=== PATIENT | male | born 1975 | race Caucasian/White ===

== ENCOUNTER 2017-11-28 12:39 | Emergency (ER) | payer MEDICAID ==
[~2017-11-28] VITALS: Ht 177.8 cm; Wt 88.7 kg
[2017-11-28 13:50] LABS: CLARITY,URINE CLEAR (Clear); COLOR,URINE STRAW (Yellow); GLUCOSE, URINE NEGATIVE (Neg); KETONES,URINE NEGATIVE (Neg); LEUKOCYTE ESTERASE ,URINE NEGATIVE (Neg); NITRITES, URINE NEGATIVE (Neg); OCCULT BLOOD,URINE NEGATIVE (Neg); PROTEIN,URINE NEGATIVE (Neg); UROBILINOGEN,URINE 0.2 E.U/dL (0.2-1.0)
[2017-11-28 13:51] LABS: UA COLLECTION TYPE VOIDED
[2017-11-28 14:05] VITALS: BP 143/92
[2017-11-28] MEDS ORDERED: PRED10TA23 PO (15:09)
[2017-11-28] MEDS ORDERED: DIPH25CA83 PO (15:09)
[2017-11-28] MEDS ORDERED: methylPREDNISolone sod succ 125mg/2ml vial IM ONE (15:10)
== END 2017-11-28 15:46 | disposition home or self-care (01) ==
LOC: ER 12:40
DX: L29.8 Other pruritus (principal); T78.40XA Allergy, unspecified, initial encounter; X58.XXXA Exposure to other specified factors, initial encounter
CPT/HCPCS: 81003; 96372; 99283; J2930

== ENCOUNTER 2018-05-18 17:08 | Emergency (ER) | payer MEDICAID, OTHER ==
[~2018-05-18] VITALS: Ht 604 cm; Wt 100.0 kg
[~2018-05-18 17:08] MED LIST: DIPH25CA83 PO
[2018-05-18 17:26] VITALS: BP 131/76
[2018-05-18] MEDS ORDERED: PENI250T2 PO (18:32)
== END 2018-05-18 18:46 | disposition home or self-care (01) ==
LOC: ER 17:08
DX: K04.7 Periapical abscess without sinus (principal); Z79.899 Other long term (current) drug therapy
CPT/HCPCS: 99283; J7030

== ENCOUNTER 2018-06-11 18:27 | Emergency (ER) | payer SELFPAY ==
[~2018-06-11] VITALS: Ht 177.8 cm; Wt 100.0 kg
[2018-06-11 19:04] LABS: BASOPHILS % (AUTO) 0.3 % (0-1); EOSINOPHILS # (AUTO) 0.3 X10'3 (0-0.9); EOSINOPHILS % (AUTO) 3.1 % (0-6); HEMATOCRIT 46.2 % (42.0-52.0); HEMOGLOBIN 15.2 g/dl (14.0-17.9); LYMPHOCYTES # (AUTO) 2.3 X10'3 (1.1-4.8); LYMPHOCYTES % (AUTO) 23.6 % (21-51); MEAN CORPUSCULAR HEMOGLOBIN 30.9 PG (27.0-31.0); MEAN CORPUSCULAR HGB CONC 32.9 % (33.0-36.5); MEAN CORPUSCULAR VOLUME 93.9 FL (78-98); MEAN PLATELET VOLUME 6.8 FL (7.4-10.4); MONOCYTES # (AUTO) 0.8 X10'3 (0-0.9); MONOCYTES % (AUTO) 8.5 % (2-12); NEUTROPHILS # (AUTO) 6.3 X10'3 (1.8-7.7); NEUTROPHILS % (AUTO) 64.5 % (42-75); PLATELET COUNT 286 X10'3 (140-440); RED BLOOD COUNT 4.92 X10'6 (4.70-6.10); RED CELL DISTRIBUTION WIDTH 14.6 % (11.5-14.5); WHITE BLOOD COUNT 9.8 X10'3 (4.5-11.0)
[2018-06-11 19:12] LABS: ALANINE AMINOTRANSFERASE 40 U/L (12-78); ALBUMIN 4.2 G/DL (3.4-5.0); ALBUMIN/GLOBULIN RATIO 1.2 (1.1-1.5); ALKALINE PHOSPHATASE 72 IU/L (46-116); ANION GAP 6 (8-16); ASPARTATE AMINO TRANSFERASE 23 U/L (10-37); BILIRUBIN,TOTAL 0.5 MG/DL (0.1-1.0); BLOOD UREA NITROGEN 12 MG/DL (7-18); BUN/CREATININE RATIO 12.1 (5.4-32.0); CALCIUM 9.1 MG/DL (8.5-10.1); CHLORIDE 104 MMOL/L (99-107); CREATININE 0.99 MG/DL (0.60-1.10); GLUCOSE 101 MG/DL (70-104); POTASSIUM 3.8 MMOL/L (3.5-5.1); SODIUM 139 MMOL/L (135-145); TOTAL CARBON DIOXIDE 29.3 MMOL/L (24-32); TOTAL PROTEIN 7.8 G/DL (6.4-8.2); eGFR 83 ML/MIN
[2018-06-11 19:14] LABS: PROTHROMBIN TIME 10.3 SECONDS (9.0-12.0)
[2018-06-11 19:53] LABS: CLARITY,URINE CLEAR (Clear); COLOR,URINE YELLOW (Yellow); GLUCOSE, URINE NEGATIVE (Neg); KETONES,URINE NEGATIVE (Neg); LEUKOCYTE ESTERASE ,URINE NEGATIVE (Neg); NITRITES, URINE NEGATIVE (Neg); OCCULT BLOOD,URINE TRACE-INTACT (Neg); PROTEIN,URINE NEGATIVE (Neg); UROBILINOGEN,URINE 0.2 E.U/dL (0.2-1.0)
[2018-06-11 19:58] LABS: UA COLLECTION TYPE CLN CATCH MIDSTREAM
[2018-06-11 19:59] LABS: BACTERIA,URINE NONE SEEN /HPF (Neg); MUCUS STRANDS NONE SEEN /LPF (Neg); RBC,URINE 0-2 /HPF (0-2); SQUAMOUS EPITHELIAL CELL,UR NONE SEEN /LPF (FEW); WBC,URINE NONE SEEN /HPF (0-4)
[2018-06-11] MEDS ORDERED: SUCR1TAB34 PO (20:10)
[2018-06-11] MEDS ORDERED: ketorolac trometh inj. 60 MG/2 ML VIAL IM ONE (20:15)
[2018-06-11 21:06] VITALS: BP 123/78
== END 2018-06-11 21:08 | disposition home or self-care (01) ==
LOC: ER 18:28
DX: R10.13 Epigastric pain (principal); R11.0 Nausea; R50.9 Fever, unspecified
CPT/HCPCS: 36415; 80053; 81001; 85025; 85610; 93005; 96372; 99285; J1885

== ENCOUNTER 2021-03-25 17:36 | Emergency (ER) | payer MEDICAID ==
[~2021-03-25] VITALS: Ht 177.8 cm; Wt 95.5 kg
[~2021-03-25 17:36] MED LIST changes: +SUCR1TAB34 PO
[2021-03-25 19:07] LABS: BASOPHILS # (AUTO) 0.1 X10'3 (0-0.2); BASOPHILS % (AUTO) 0.7 % (0-1); EOSINOPHILS # (AUTO) 0.1 X10'3 (0-0.9); HEMATOCRIT 45.9 % (42.0-52.0); HEMOGLOBIN 15.8 g/dl (14.0-17.9); LYMPHOCYTES # (AUTO) 3.5 X10'3 (1.1-4.8); MEAN CORPUSCULAR HGB CONC 34.5 g/dL (33.0-36.5); MEAN CORPUSCULAR VOLUME 92.8 FL (78-98); MEAN PLATELET VOLUME 6.9 FL (7.4-10.4); MONOCYTES # (AUTO) 0.6 X10'3 (0-0.9); MONOCYTES % (AUTO) 5.6 % (2-12); NEUTROPHILS % (AUTO) 61.7 % (42-75); PLATELET COUNT 298 X10'3 (140-440); RED BLOOD COUNT 4.94 X10'6 (4.70-6.10); RED CELL DISTRIBUTION WIDTH 13.3 % (11.5-14.5); WHITE BLOOD COUNT 11.3 X10'3 (4.5-11.0)
[2021-03-25] MEDS ORDERED: ondansetron 4mg rapidly disintigrating tab PO ONE ×2 (19:15→20:45)
[2021-03-25] MEDS ORDERED: HYDROcodone/acetaminophen 5mg/325mg tablet PO ONE ×2 (19:15→20:45)
[2021-03-25] MEDS ORDERED: ketorolac tromethamine 15mg/ml inj. IV ONE (19:15)
[2021-03-25] MEDS ORDERED: normal saline 1000ml 1,000 ML IV ONE (19:15)
[2021-03-25 19:19] LABS: ALANINE AMINOTRANSFERASE 47 U/L (12-78); ALBUMIN 4.6 G/DL (3.4-5.0); ALBUMIN/GLOBULIN RATIO 1.4 (1.1-1.5); ALKALINE PHOSPHATASE 68 IU/L (46-116); ANION GAP 9 (8-16); ASPARTATE AMINO TRANSFERASE 16 U/L (10-37); BILIRUBIN,TOTAL 0.5 MG/DL (0.1-1.0); BLOOD UREA NITROGEN 26 MG/DL (7-18); BUN/CREATININE RATIO 21.3 (5.4-32.0); CHLORIDE 101 MMOL/L (99-107); CREATININE 1.22 MG/DL (0.60-1.10); GLUCOSE 147 MG/DL (70-104); LIPASE 169 U/L (73-393); POTASSIUM 4.2 MMOL/L (3.5-5.1); SODIUM 136 MMOL/L (135-145); TOTAL CARBON DIOXIDE 26.2 MMOL/L (24-32); TOTAL PROTEIN 7.9 G/DL (6.4-8.2); eGFR 64 ML/MIN
[2021-03-25 19:26] LABS: CLARITY,URINE SLIGHTLY CLOUDY (Clear); COLOR,URINE YELLOW (Yellow); GLUCOSE, URINE NEGATIVE (Neg); KETONES,URINE NEGATIVE (Neg); LEUKOCYTE ESTERASE ,URINE NEGATIVE (Neg); NITRITES, URINE NEGATIVE (Neg); OCCULT BLOOD,URINE NEGATIVE (Neg); PROTEIN,URINE NEGATIVE (Neg); UROBILINOGEN,URINE 0.2 E.U/dL (0.2-1.0)
[2021-03-25 19:30] LABS: UA COLLECTION TYPE CLN CATCH MIDSTREAM
--- NOTE | 2021-03-25 19:30 | NUR ---
Patient ambulatory to CT
--- NOTE | 2021-03-25 19:39 | NUR ---
Patient states pain has sarted to subdue at this time and feels like he is able to urinate more.
[2021-03-25 20:03] LABS: BACTERIA,URINE NONE SEEN /HPF (Neg); RBC,URINE NONE SEEN /HPF (0-2); SQUAMOUS EPITHELIAL CELL,UR NONE SEEN /LPF (FEW); WBC,URINE 0-4 /HPF (0-4)
[2021-03-25 20:04] LABS: AMORPHOUS URATES 2+
[2021-03-25] MEDS ORDERED: HYDR-3965 PO (20:44)
[2021-03-25] MEDS ORDERED: FLO0.4C PO (20:44)
[2021-03-25] MEDS ORDERED: ONDA4TAB6 PO (20:44)
[2021-03-25 20:59] VITALS: BP 136/82
== END 2021-03-25 21:01 | disposition home or self-care (01) ==
LOC: ER 17:37
DX: N20.1 Calculus of ureter (principal); R10.84 Generalized abdominal pain; R11.0 Nausea; Z87.442 Personal history of urinary calculi; Z79.899 Other long term (current) drug therapy
CPT/HCPCS: 36415; 74176; 80053; 81001; 83690; 85025; 96361; 96374; 99284; J1885; J7030

== ENCOUNTER 2021-11-03 04:19 | Inpatient (IN) | payer MEDICAID ==
[~2021-11-03] VITALS: Ht 180.3 cm; Wt 99.0 kg
[~2021-11-03 04:19] MED LIST changes: +ONDA4TAB6 PO
--- NOTE | 2021-11-03 04:41 | NUR ---
patient aware urine sample is needed urinal given to patient awaiting sample
[2021-11-03 04:55] LABS: BASOPHILS % (AUTO) 0.2 % (0-1); EOSINOPHILS # (AUTO) 0.1 X10'3 (0-0.9); EOSINOPHILS % (AUTO) 0.2 % (0-6); HEMATOCRIT 50.6 % (42.0-52.0); HEMOGLOBIN 17.2 g/dl (14.0-17.9); LYMPHOCYTES # (AUTO) 0.9 X10'3 (1.1-4.8); MEAN CORPUSCULAR HEMOGLOBIN 31.4 PG (27.0-31.0); MEAN CORPUSCULAR HGB CONC 33.9 g/dL (33.0-36.5); MEAN CORPUSCULAR VOLUME 92.6 FL (78-98); MONOCYTES # (AUTO) 0.8 X10'3 (0-0.9); MONOCYTES % (AUTO) 3.4 % (2-12); NEUTROPHILS # (AUTO) 21.1 X10'3 (1.8-7.7); NEUTROPHILS % (AUTO) 92.2 % (42-75); PLATELET COUNT 301 X10'3 (140-440); RED BLOOD COUNT 5.47 X10'6 (4.70-6.10); RED CELL DISTRIBUTION WIDTH 14.1 % (11.5-14.5); WHITE BLOOD COUNT 22.9 X10'3 (4.5-11.0)
[2021-11-03 04:59] LABS: ALANINE AMINOTRANSFERASE 57 U/L (12-78); ALBUMIN 5.1 G/DL (3.4-5.0); ALBUMIN/GLOBULIN RATIO 1.4 (1.1-1.5); ALKALINE PHOSPHATASE 65 IU/L (46-116); ANION GAP 14 (8-16); ASPARTATE AMINO TRANSFERASE 35 U/L (10-37); BILIRUBIN,TOTAL 1.4 MG/DL (0.1-1.0); BLOOD UREA NITROGEN 26 MG/DL (7-18); BUN/CREATININE RATIO 22.4 (5.4-32.0); CALCIUM 9.7 MG/DL (8.5-10.1); CHLORIDE 103 MMOL/L (99-107); CREATININE 1.16 MG/DL (0.60-1.10); GLUCOSE 130 MG/DL (70-104); LIPASE 144 U/L (73-393); POTASSIUM 4.5 MMOL/L (3.5-5.1); SODIUM 143 MMOL/L (135-145); TOTAL CARBON DIOXIDE 26.1 MMOL/L (24-32); TOTAL PROTEIN 8.8 G/DL (6.4-8.2); eGFR 67 ML/MIN
[2021-11-03 05:01] LABS: CLARITY,URINE CLEAR (Clear); COLOR,URINE YELLOW (Yellow); GLUCOSE, URINE NEGATIVE (Neg); KETONES,URINE NEGATIVE (Neg); LEUKOCYTE ESTERASE ,URINE NEGATIVE (Neg); NITRITES, URINE NEGATIVE (Neg); OCCULT BLOOD,URINE NEGATIVE (Neg); PROTEIN,URINE NEGATIVE (Neg); UROBILINOGEN,URINE 0.2 E.U/dL (0.2-1.0)
[2021-11-03 05:02] LABS: UA COLLECTION TYPE CLN CATCH MIDSTREAM
[2021-11-03] MEDS ORDERED: normal saline 1000ML IV soln IV ONE (05:05)
[2021-11-03] MEDS ORDERED: morphine 2 MG/ML inj. syringe IV PRN (05:15)
[2021-11-03] MEDS ORDERED: metoclopramide 5 mg/ml inj IV ONE (05:15)
[2021-11-03 05:46] LABS: MAGNESIUM 1.9 MG/DL (1.5-2.4)
[2021-11-03] MEDS ORDERED: piperacillin/tazo 3.375gm/50ml 50 ML IV ONE ×2 (06:20→12:00)
--- NOTE | 2021-11-03 11:59 | NUR ---
SPOKE TO DR MAIN AND ASKED IF HE KNOWS ANYTHING ABOUT PT POC ,PT WAITING FOR SURGEON ,NO ADMITTING ORDERS FOR THE PT ,PT C/O HEADACHE , PER MD HE WILL SEE WHAT IS GOING ON PT SUPPOSE TO BE ADMITTED LONG TIME AGO BUT PER PEG EDEN STATED THAT DR MUÑOZ WILL COME EVALUATE THE PT AND DECIDE WHETHER PT NEEDS TO BE ADMITTED.
--- NOTE | 2021-11-03 12:04 | NUR ---
SPOKE TO PHARMACIST/FORTUNATO AND INFORMED THAT PT HAS ZYOSIN ORDER AND HE RECIVED IT 5 HR AGO PER FREKeira ITS Q6 HR IS IT OKAY TO ADMIN TO THE PT? PER PHARMACIST ITS OKAY EVEN ITS Q5 HR.
[2021-11-03] MEDS ORDERED: HYDROmorphone inj. 0.5 MG/0.5 ML DISP.SYRIN IV PRN ×2 (12:15→12:49)
[2021-11-03] MEDS ORDERED: magnesium 2GM in 50ml NS 50 ML IV PRN (12:15)
[2021-11-03] MEDS ORDERED: potassium Cl 20 mEq SR tablet PO PRN ×2 (12:15)
[2021-11-03] MEDS ORDERED: HYDROmorphone/PF 0.2 MG/ML SYRINGE IV PRN (12:15)
[2021-11-03] MEDS ORDERED: potassium CL 10mEq/100ml bag 100 ML IV PRN (12:15)
[2021-11-03] MEDS ORDERED: ondansetron/PF 4mg/2ml inj IV PRN (12:15)
[2021-11-03] MEDS ORDERED: acetaminophen 325mg tablet PO PRN (12:15)
[2021-11-03] MEDS ORDERED: magnesium 4gm in 100ml NS 100 ML IV PRN (12:15)
[2021-11-03 12:35] LABS: BASOPHILS % (AUTO) 0.3 % (0-1); EOSINOPHILS # (AUTO) 0.1 X10'3 (0-0.9); EOSINOPHILS % (AUTO) 0.3 % (0-6); HEMATOCRIT 44.9 % (42.0-52.0); LYMPHOCYTES # (AUTO) 0.9 X10'3 (1.1-4.8); LYMPHOCYTES % (AUTO) 5.4 % (21-51); MEAN CORPUSCULAR HEMOGLOBIN 31.3 PG (27.0-31.0); MEAN CORPUSCULAR HGB CONC 33.3 g/dL (33.0-36.5); MEAN PLATELET VOLUME 6.7 FL (7.4-10.4); MONOCYTES # (AUTO) 0.6 X10'3 (0-0.9); MONOCYTES % (AUTO) 3.7 % (2-12); NEUTROPHILS # (AUTO) 15.3 X10'3 (1.8-7.7); NEUTROPHILS % (AUTO) 90.3 % (42-75); PLATELET COUNT 270 X10'3 (140-440); RED BLOOD COUNT 4.78 X10'6 (4.70-6.10); RED CELL DISTRIBUTION WIDTH 14.3 % (11.5-14.5)
[2021-11-03] MEDS ORDERED: HYDR-3965 PO (12:36)
[2021-11-03] MEDS ORDERED: IBUP-24 PO (12:36)
[2021-11-03] MEDS ORDERED: SILD50TA PO (12:36)
[2021-11-03 12:44] LABS: ALANINE AMINOTRANSFERASE 45 U/L (12-78); ALBUMIN 4.1 G/DL (3.4-5.0); ALBUMIN/GLOBULIN RATIO 1.3 (1.1-1.5); ALKALINE PHOSPHATASE 52 IU/L (46-116); ANION GAP 8 (8-16); ASPARTATE AMINO TRANSFERASE 21 U/L (10-37); BILIRUBIN,TOTAL 1.5 MG/DL (0.1-1.0); BLOOD UREA NITROGEN 19 MG/DL (7-18); BUN/CREATININE RATIO 18.6 (5.4-32.0); CALCIUM 8.1 MG/DL (8.5-10.1); CHLORIDE 104 MMOL/L (99-107); CREATININE 1.02 MG/DL (0.60-1.10); GLUCOSE 125 MG/DL (70-104); POTASSIUM 4.3 MMOL/L (3.5-5.1); SODIUM 139 MMOL/L (135-145); TOTAL CARBON DIOXIDE 26.6 MMOL/L (24-32); TOTAL PROTEIN 7.3 G/DL (6.4-8.2); eGFR 78 ML/MIN
[2021-11-03] MEDS: normal saline 1000ml 1,000 ML IV SCH ×2 (13:07→21:00)
[2021-11-03] MEDS ORDERED: sincalide inj 2 MCG in normal saline 50ml IV soln 50 ML IV ONE (14:15)
[2021-11-03] MEDS: piperacillin/tazo 4.5gm/100ml 100 ML IV SCH (17:19)
[2021-11-03 19:45] VITALS: BP 119/69
--- NOTE | 2021-11-03 19:58 | NUR ---
PAGER ID: [phone] MESSAGE: Pt 350A Michael Phillips pt says he was told he would be able to eat and be NPO at 0400 but the only diet order in is NPO. He is hungry. Maddie [id number]
[2021-11-03] MEDS: K and/or MAG REPLACEMENT MC SCH (20:00)
--- NOTE | 2021-11-03 20:08 | NUR ---
PAGER ID: [phone] MESSAGE: [id number] Michael Phillips scan in morning but is hungry now can we get a diet order and make him NPO after midnight. Maddie [id number]
[2021-11-03 23:26] VITALS: BP 114/59
[2021-11-04] MEDS: piperacillin/tazo 4.5gm/100ml 100 ML IV SCH ×2 (00:42→10:36)
[2021-11-04] MEDS: normal saline 1000ml 1,000 ML IV SCH (04:37)
[2021-11-04 06:14] LABS: BASOPHILS % (AUTO) 0.4 % (0-1); EOSINOPHILS # (AUTO) 0.2 X10'3 (0-0.9); EOSINOPHILS % (AUTO) 1.9 % (0-6); HEMATOCRIT 39.2 % (42.0-52.0); HEMOGLOBIN 13.4 g/dl (14.0-17.9); LYMPHOCYTES # (AUTO) 2.1 X10'3 (1.1-4.8); LYMPHOCYTES % (AUTO) 23.5 % (21-51); MEAN CORPUSCULAR HEMOGLOBIN 31.9 PG (27.0-31.0); MEAN CORPUSCULAR HGB CONC 34.3 g/dL (33.0-36.5); MEAN CORPUSCULAR VOLUME 93.1 FL (78-98); MONOCYTES # (AUTO) 0.7 X10'3 (0-0.9); MONOCYTES % (AUTO) 7.8 % (2-12); NEUTROPHILS % (AUTO) 66.4 % (42-75); PLATELET COUNT 238 X10'3 (140-440); RED BLOOD COUNT 4.21 X10'6 (4.70-6.10); RED CELL DISTRIBUTION WIDTH 14.1 % (11.5-14.5)
--- NOTE | 2021-11-04 06:18 | NUR ---
Problems reprioritized. Patient report given, questions answered & plan of care reviewed with [facility] Zhu. She is aware pt is NPO since midnight and not able to have opiates due to HIDA scan this morning.
[2021-11-04 06:28] LABS: ALANINE AMINOTRANSFERASE 38 U/L (12-78); ALBUMIN 3.3 G/DL (3.4-5.0); ALBUMIN/GLOBULIN RATIO 1.1 (1.1-1.5); ALKALINE PHOSPHATASE 43 IU/L (46-116); ANION GAP 7 (8-16); ASPARTATE AMINO TRANSFERASE 19 U/L (10-37); BILIRUBIN,TOTAL 0.9 MG/DL (0.1-1.0); BLOOD UREA NITROGEN 14 MG/DL (7-18); CALCIUM 8.2 MG/DL (8.5-10.1); CHLORIDE 107 MMOL/L (99-107); CREATININE 1.08 MG/DL (0.60-1.10); GLUCOSE 100 MG/DL (70-104); MAGNESIUM 1.9 MG/DL (1.5-2.4); POTASSIUM 3.9 MMOL/L (3.5-5.1); SODIUM 141 MMOL/L (135-145); TOTAL CARBON DIOXIDE 26.6 MMOL/L (24-32); TOTAL PROTEIN 6.3 G/DL (6.4-8.2); eGFR 73 ML/MIN
--- NOTE | 2021-11-04 06:34 | NUR ---
Patient in room [facility] 350. I have received report from [facility] Pekrins and had the opportunity to ask questions and assume patient care.
[2021-11-04 07:00] VITALS: BP 121/61
[2021-11-04 07:42] VITALS: BP 121/61
[2021-11-04] MEDS: K and/or MAG REPLACEMENT MC SCH (08:00)
[2021-11-04] MEDS ORDERED: sincalide inj 2 MCG in normal saline 100ml IV soln 98 ML IV ONE (09:05)
[2021-11-04 11:36] VITALS: BP 126/76
[2021-11-04] MEDS ORDERED: ONDA4TAB12 PO (11:36)
--- NOTE | 2021-11-04 15:48 | NUR ---
VS stable, MDs rounded. Pt discharged instructions and education provided. Pt verbalized understanding. Pt brought home all belongings, IV discontinued. Pt was escorted out via wheelchair.
== END 2021-11-04 15:20 | disposition home or self-care (01) ==
LOC: ER 04:20 → ED HOLD 12:19 → SUR 3N 19:02
PROVIDERS: ADMIT Family Medicine; ATTEND Family Medicine
PROC: CF1C1ZZ Planar Nuclear Medicine Imaging of Hepatobiliary System, All using Technetium 99m (Tc-99m) (ICD-10-PCS; principal; 2021-11-04)
DX: K82.8 Other specified diseases of gallbladder (principal); N17.9 Acute kidney failure, unspecified; K56.7 Ileus, unspecified; D72.823 Leukemoid reaction; K38.1 Appendicular concretions; Z80.1 Family history of malignant neoplasm of trachea, bronchus and lung; Z87.442 Personal history of urinary calculi; Z79.899 Other long term (current) drug therapy
CPT/HCPCS: 36415; 74176; 76700; 78227; 80053; 81003; 83605; 83690; 83735; 84145; 85025; 87040; 87077; 87081; 96361; 96365; 96367; 96375; 99285; A9537; G0378; J1170; J2543; J2765; J2805; J3490; J7030

== ENCOUNTER 2023-03-04 14:49 | Emergency (ER) | payer MEDICAID ==
[~2023-03-04] VITALS: Ht 180.3 cm; Wt 100.0 kg
[~2023-03-04 14:49] MED LIST changes: -DIPH25CA83 PO; +HYDR-3965 PO; +IBUP-24 PO; +ONDA4TAB12 PO; -ONDA4TAB6 PO; +SILD50TA PO; -SUCR1TAB34 PO
[2023-03-04 16:03] VITALS: BP 140/82
[2023-03-04 17:41] LABS: BASOPHILS % (AUTO) 0.3 % (0-1); EOSINOPHILS # (AUTO) 0.1 X10'3 (0-0.9); EOSINOPHILS % (AUTO) 0.8 % (0-6); HEMATOCRIT 47.5 % (42.0-52.0); HEMOGLOBIN 15.9 g/dl (14.0-17.9); LYMPHOCYTES # (AUTO) 2.4 X10'3 (1.1-4.8); LYMPHOCYTES % (AUTO) 28.3 % (21-51); MEAN CORPUSCULAR HEMOGLOBIN 31.6 PG (27.0-31.0); MEAN CORPUSCULAR HGB CONC 33.5 g/dL (33.0-36.5); MEAN CORPUSCULAR VOLUME 94.4 FL (78-98); MEAN PLATELET VOLUME 7.1 FL (7.4-10.4); MONOCYTES # (AUTO) 0.6 X10'3 (0-0.9); MONOCYTES % (AUTO) 6.8 % (2-12); NEUTROPHILS # (AUTO) 5.5 X10'3 (1.8-7.7); NEUTROPHILS % (AUTO) 63.8 % (42-75); PLATELET COUNT 212 X10'3 (140-440); RED BLOOD COUNT 5.03 X10'6 (4.70-6.10); RED CELL DISTRIBUTION WIDTH 14.1 % (11.5-14.5); WHITE BLOOD COUNT 8.6 X10'3 (4.5-11.0)
[2023-03-04 17:52] LABS: ALANINE AMINOTRANSFERASE 46 U/L (12-78); ALBUMIN 4.4 G/DL (3.4-5.0); ALBUMIN/GLOBULIN RATIO 1.2 (1.1-1.5); ALKALINE PHOSPHATASE 65 IU/L (46-116); ANION GAP 8 (8-16); ASPARTATE AMINO TRANSFERASE 20 U/L (10-37); BILIRUBIN,TOTAL 0.5 MG/DL (0.1-1.0); BLOOD UREA NITROGEN 14 MG/DL (7-18); BUN/CREATININE RATIO 13.3 (10.0-20.0); CALCIUM 9.5 MG/DL (8.5-10.1); CHLORIDE 101 MMOL/L (99-107); CREATININE 1.05 MG/DL (0.60-1.10); GLUCOSE 101 MG/DL (70-104); POTASSIUM 4.7 MMOL/L (3.5-5.1); SODIUM 139 MMOL/L (135-145); TOTAL CARBON DIOXIDE 30.5 MMOL/L (24-32); TOTAL PROTEIN 8.1 G/DL (6.4-8.2); eGFR 75 ML/MIN
[2023-03-04 17:54] LABS: MONOTEST NEGATIVE (Neg)
== END 2023-03-04 18:03 | disposition home or self-care (01) ==
LOC: ER 14:49
DX: U07.1 COVID-19 (principal); Z87.442 Personal history of urinary calculi; Z85.118 Personal history of other malignant neoplasm of bronchus and lung; Z79.899 Other long term (current) drug therapy; Z88.5 Allergy status to narcotic agent
CPT/HCPCS: 36415; 80053; 85025; 86308; 87502; 87503; 87811; 99283

== ENCOUNTER 2024-08-29 10:24 | Emergency (ER) | payer MEDICAID ==
[~2024-08-29] VITALS: Ht 177.8 cm; Wt 101.7 kg
[~2024-08-29 10:24] MED LIST changes: +ONDA-243 PO; -ONDA4TAB12 PO
[2024-08-29 11:25] LABS: BASOPHILS % (AUTO) 0.2 % (0-1); EOSINOPHILS % (AUTO) 0.5 % (0-6); HEMATOCRIT 52.6 % (42.0-52.0); HEMOGLOBIN 17.8 g/dl (14.0-17.9); LYMPHOCYTES # (AUTO) 1.9 X10'3 (1.1-4.8); LYMPHOCYTES % (AUTO) 23.7 % (21-51); MEAN CORPUSCULAR HEMOGLOBIN 32.1 PG (27.0-31.0); MEAN CORPUSCULAR HGB CONC 33.9 g/dL (33.0-36.5); MEAN CORPUSCULAR VOLUME 94.8 FL (78-98); MONOCYTES # (AUTO) 0.4 X10'3 (0-0.9); MONOCYTES % (AUTO) 4.9 % (2-12); NEUTROPHILS # (AUTO) 5.7 X10'3 (1.8-7.7); NEUTROPHILS % (AUTO) 70.7 % (42-75); PLATELET COUNT 277 X10'3 (140-440); RED BLOOD COUNT 5.55 X10'6 (4.70-6.10); WHITE BLOOD COUNT 8.1 X10'3 (4.5-11.0)
[2024-08-29 11:41] LABS: ALANINE AMINOTRANSFERASE 38 U/L (12-78); ALBUMIN 4.7 G/DL (3.4-5.0); ALBUMIN/GLOBULIN RATIO 1.3 (1.1-1.5); ALKALINE PHOSPHATASE 62 IU/L (46-116); ANION GAP 5 (8-16); ASPARTATE AMINO TRANSFERASE 16 U/L (10-37); BILIRUBIN,TOTAL 0.8 MG/DL (0.1-1.0); BLOOD UREA NITROGEN 21 MG/DL (7-18); BUN/CREATININE RATIO 19.4 (10.0-20.0); CALCIUM 9.8 MG/DL (8.5-10.1); CHLORIDE 103 MMOL/L (99-107); CREATININE 1.08 MG/DL (0.60-1.10); GLUCOSE 111 MG/DL (70-104); POTASSIUM 4.6 MMOL/L (3.5-5.1); SODIUM 138 MMOL/L (135-145); TOTAL CARBON DIOXIDE 29.9 MMOL/L (24-32); TOTAL PROTEIN 8.3 G/DL (6.4-8.2); eCRCL 84 ML/MIN; eGFR 72 ML/MIN
[2024-08-29 11:46] LABS: LIPASE 76 U/L (16-77)
[2024-08-29 11:48] LABS: BILIRUBIN,URINE NEGATIVE (Neg); CLARITY,URINE CLEAR (Clear); COLOR,URINE YELLOW (Yellow); GLUCOSE, URINE NEGATIVE (Neg); KETONES,URINE NEGATIVE (Neg); LEUKOCYTE ESTERASE ,URINE NEGATIVE (Neg); NITRITES, URINE NEGATIVE (Neg); OCCULT BLOOD,URINE NEGATIVE (Neg); PH,URINE 6.5 (4.8-8.0); PROTEIN,URINE NEGATIVE (Neg); UROBILINOGEN,URINE 0.2 E.U/dL (0.2-1.0)
[2024-08-29 11:53] LABS: UA COLLECTION TYPE NON-SPECIFIED
[2024-08-29] MEDS: normal saline 1000ml 1,000 ML IV ONE (12:01)
[2024-08-29 12:05] VITALS: TEMP 98
[2024-08-29 12:25] LABS: PRO BRAIN NATRIURETIC PEPTIDE < 30 PG/ML (0-125); THYROID STIMULATING HORMONE 1.12 ulU/ml (0.34-4.50)
[2024-08-29 13:12] VITALS: BP 139/87; PULSE 61; RESP 16; O2SAT 98
== END 2024-08-29 13:17 | disposition home or self-care (01) ==
LOC: ER 10:24
DX: R53.1 Weakness (principal); R42 Dizziness and giddiness; R10.84 Generalized abdominal pain; Z88.5 Allergy status to narcotic agent; Z87.442 Personal history of urinary calculi
CPT/HCPCS: 36415; 80053; 81003; 83690; 83880; 84443; 84484; 85025; 93005; 96360; 99284; J7030

== ENCOUNTER 2025-01-17 23:27 | Emergency (ER) | payer MEDICAID ==
[~2025-01-17] VITALS: Ht 180.3 cm; Wt 95.5 kg
[2025-01-17 23:30] VITALS: BP 139/75; PULSE 61; RESP 16; TEMP 97.4; O2SAT 95
--- NOTE | 2025-01-18 00:05 | RADIOLOGY REPORT ---
CLINICAL INDICATION: Shoulder Pain TECHNIQUE: DI SHOULDER, COMPLETE (MIN 2 VWS) Comparison: None FINDINGS: No osseous or joint abnormality with no fracture or dislocation. Joint spaces are normal. Soft tissue s appear unremarkable. IMPRESSION: No abnormality demonstrated.
--- NOTE | 2025-01-18 00:53 | Physician Documentation ---
History of Present Illness ~ Chief Complaint: Arm Pain Stated Complaint: HAND ARM PAIN Time Seen by MD: 00:34 Primary Medical Doctor: GREGORY HANLEY [facility] 49-year-old male reports ER with chief complaint of left shoulder pain. Patient states he has been experiencing pain for the past two months. Patient states that he woke up with pain to his shoulder after going to the gym and working out and going to work. Patient currently denies fevers or chills. Endorses night pain. No other complaints at this time Tetanus within 5 years: No Medication Reconciliation Allergies: Coded Allergies: morphine (Verified Adverse Reaction, Intermediate, 08/29/24) n/v, psycosis Scheduled Sildenafil Citrate* (Viagra*), 1 TAB PO PRN, (Reported) Scheduled PRN Hydrocodone Bit/Acetaminophen 5/325 MG ([place] 5/325 MG), 1 TABLET PO TID PRN for pain, (Reported) Ibuprofen (Advil), 400 MG PO TID PRN for pain, (Reported) ONDANSETRON ODT 4mg tablet (Ondansetron Odt), 4 MG PO Q6H PRN for nausea/vomiting Past Medical History Past Medical History: No Pertinent History, Kidney Stones Past Surgical History: no surgical history, noncontributory Patient History: FH: lung cancer MOTHER (Small cell lung cancer) Alcohol Use: None Drug Use: none Lives with: Spouse Lives In: Home Occupation: employed Physical Exam Vital Signs: Temperature: 97.4, Heart Rate: 61, Respiratory Rate: 16, BP: 139/75, Pulse Oximetry: 95, Weight: 95.450 Oxygen Flow Rate: 0 Physical Exam General: Well developed, well nourished, no distress. HEENT: Atraumatic, normal conjunctiva, moist mucous membranes. Neck: Full range of motion, supple. Respiratory: Lungs clear, no respiratory distress. Chest: No accessory muscle use, nontender. Cardiovascular: Regular rate and rhythm. Gastrointestinal: Soft, nontender, nondistended. Bowel sounds present. Extremities: Left shoulder exam: Negative for permanents gross deformities. Negative for overlying erythema, ecchymosis signs of infection. Positive for tenderness to the anterior and lateral deltoid. Forward flexion from 0-90 active and 0-160 beats passive. Positive Neer's, negative [place], positive for cocaine, positive. Back, negative push-off, positive speed's, negative bear -hug Back: No midline tenderness, no CVA tenderness. Neurologic: Oriented x4. Distal gross motor and sensory intact all four ext remities. Moves all 4 extremities spontaneously. Psychiatric: Normal mood and affect. Skin: Normal color, warm and dry. No edema, no ecchymosis Progress Results/Orders Results/Orders Orders - MITCH HEMPHILL Shoulder, Complete (Min 2 Vws) (01/17/25 23:40) Ketorolac Trometh 30mg/Ml Vial (Toradol (01/18/25 00:35) Completed Orders - MITCH HEMPHILL Shoulder, Complete (Min 2 Vws) (01/17/25 23:40) Dexamethasone Inj (Decadron 10mg/Ml Inj) (01/18/25 00:34) Vital Signs 01/17/25 23:30 Temp 97.4 Pulse 61 Resp 16 B/P (MAP) 139/75 Pulse Ox 95 O2 Flow Rate 0 Medical Decision Making Additional info obtained from: old records Findings After detailed discussion and joint medical decision-making, diagnostic and imaging results were discussed with the patient. At this time patient appears to have evidence of rotator cuff syndrome patient will be discharged with instructions to follow up primary care. ER precautions were given. Patient is stable upon discharge. All patient questions answered to satisfaction General Diff Dx:Considerations: Include: Other (Fracture, contusion, strain) Departure Disposition: 01 HOME / SELF CARE / HOMELESS Impression: Primary Impression: Tendinitis Condition: Stable Referrals: NO PRIMARY CARE PROVIDER (PCP) Prescriptions Lidocaine (Lidoderm) 5 % Adh..patch 1 PATCH TOP DAILY for 30 Days, #30 PATCH 0 Refills may wear up to 12 hours Prov: MITCH HEMPHILL 01/18/25 Meloxicam* (Meloxicam*) 7.5 Mg Tablet 1 TAB PO DAILY for 30 Days, #30 TAB 0 Refills Prov: MITCH HEMPHILL 01/18/25 Prednisone* (Prednisone*) 20 Mg Tablet 1 TAB PO Q12H for 5 Days, #10 TAB Prov: MITCH HEMPHILL 01/18/25 Education Educated: Patient Educated regarding: diagnosis, treatment Signature Scribe Signature: none used Attestation: Scribed for Mitch Hemphill by Mitch HARPER . 01/18/25 00:58 MITCH HEMPHILL January 18, 2025 00:53
[2025-01-18] MEDS ORDERED: LIDO700A32 TOP (00:57)
[2025-01-18] MEDS ORDERED: PRED20TA PO (00:57)
[2025-01-18] MEDS ORDERED: MELO-100 PO (00:57)
[2025-01-18] MEDS: dexamethasone sod phosphate 10mg/ml inj IM STA (01:29)
[2025-01-18] MEDS: ketorolac trometh 30MG/ML vial 30 MG/ML VIAL IV ONE (01:29)
== END 2025-01-18 01:36 | disposition home or self-care (01) ==
LOC: ER 23:28
DX: M77.9 Enthesopathy, unspecified (principal); Z88.5 Allergy status to narcotic agent; Z79.899 Other long term (current) drug therapy
CPT/HCPCS: 73030; 99283